=== PATIENT | male | born 1930 | race Caucasian/White ===

== ENCOUNTER 2017-04-06 03:15 | Inpatient (IN) | payer OTHER ==
[~2017-04-06] VITALS: Ht 182.9 cm; Wt 90.7 kg
[2017-04-06] VITALS (9 sets, daily range): BP systolic 35–82; BP diastolic 15–54
[2017-04-06 03:58] LABS: Basophils # (auto) 0 uL; Basophils % (auto) 0.3 % (0.0-2.0); Eosinophils # (auto) 0 uL; Eosinophils % (auto) 0.2 % (0.0-7.0); Mean Corpuscular Hgb Conc. 27.3 g/dL (32.0-36.0); Monocytes # (auto) 0.8 uL; Neutrophils # (auto) 8.8 uL
[2017-04-06 04:00] LABS: Hematocrit 47.6 % (41.0-53.0); Lymphocytes # (auto) 4.5 uL; Lymphocytes % (auto) 31.6 % (10.0-50.0); Mean Corpuscular Hemoglobin 28.3 pg (28.0-32.0); Mean Platelet Volume 9.2 fL (6.9-10.8); Monocytes % (auto) 5.8 % (0.0-12.0); Neutrophils % (auto) 62.1 % (37.0-80.0); Platelet Count (auto) 253 10^3/uL (140-450); Red Cell Distribution Width 15.6 % (11.8-14.3); White Blood Cell 14.1 10^3/uL (4.4-10.8)
[2017-04-06] MEDS ORDERED: MIDAZOLAM DRIP 50 mg/50mL 50 ML IV ONE (04:14)
[2017-04-06] MEDS ORDERED: ONDANSETRON HCL 4 MG/2 ML VIAL ONE (04:15)
[2017-04-06] MEDS ORDERED: MORPHINE SULFATE 4 MG/ML SYRG ONE (04:15)
[2017-04-06 04:17] LABS: Albumin 3.4 g/dL (3.4-5.0); BUN/Creatinine Ratio 10.2; Calcium 9.6 mg/dL (8.5-10.1); Magnesium 2.9 mg/dL (1.6-2.6)
[2017-04-06 04:18] LABS: Bilirubin, Total 0.8 mg/dL (0.2-1.0); Total Protein 6.9 g/dL (6.4-8.2)
[2017-04-06] MEDS: MIDAZOLAM DRIP 50 mg/50mL 50 ML IV SCH (04:22)
[2017-04-06] MEDS ORDERED: MORPHINE SULFATE 4 MG/ML SYRG IV ONE (04:30)
[2017-04-06] MEDS ORDERED: ONDANSETRON HCL 4 MG/2 ML VIAL IV ONE (04:30)
[2017-04-06 05:21] LABS: B-Type Natriuretic Peptide 428.2 pg/mL (0-100)
[2017-04-06] MEDS ORDERED: SODIUM CHLORIDE 0.9% 1,000 ML IV SCH ×3 (05:24→12:34)
[2017-04-06] MEDS ORDERED: InsuLIN R (HUMAN) 100 UNITS in SODIUM CHL 0.9% 99 ML IV SCH ×3 (05:24→19:31)
[2017-04-06] MEDS ORDERED: DEXTROSE (50%) 50ML SYRG IV PRN (05:30)
[2017-04-06] MEDS ORDERED: LEVOFLOXACIN 750MG 150 ML IV ONE (06:00)
[2017-04-06 06:09] LABS: Base Excess -22.4 mmol/L (-2.0-2.0); Blood 02Sat 98.9 % (96-100); Blood COHb 0.1 % (0.5-1.5); Blood MetHb 0.1 % (0.0-1.5); CPAP / PEEP 0; HCO3 6.7 mmol/L (22-26.0); HHb 1.1 % (0.0-5.0); MODE VENT - A/C; O2Hb 98.7 % (94.0-97.0); PCO2 25.1 mmHg (35.0-45.0); PCO2(T) 25.1 mmHg (35.0-45.0); PO2 276.9 mmHg (80.0-100.0); PO2(T) 276.9 mmHg (80.0-100.0); Sample Type Arterial; pH 7.045 (7.350-7.450)
[2017-04-06 06:12] LABS: Magnesium 2.7 mg/dL (1.6-2.6)
[2017-04-06] MEDS ORDERED: NOREPINEPHRINE 8 MG/250ML KIT 250 ML IV ONE (06:19)
[2017-04-06] MEDS: ACCU-CHEK COMFORT CURVE STRIP VI SCH ×10 (06:21→19:47)
[2017-04-06 06:28] LABS: Phosphorus 9.2 mg/dL (2.5-4.90)
[2017-04-06] MEDS ORDERED: NOREPINEPHRINE 8 MG/250ML KIT 250 ML IV SCH (06:34)
[2017-04-06] MEDS ORDERED: SODIUM BICARBONATE 8.4% INJ 50ML SYRINGE ONE ×2 (06:42→08:26)
[2017-04-06] MEDS ORDERED: MORPHINE SULF INJ 2 MG/ML SYRINGE 1ML IV PRN ×2 (06:45)
[2017-04-06] MEDS ORDERED: VANCOMYCIN PER PHARMACY 0 MG IV SCH (06:45)
[2017-04-06] MEDS ORDERED: ONDANSETRON HCL 4 MG/2 ML VIAL IV PRN (06:45)
[2017-04-06] MEDS ORDERED: NITROGLYCERIN 0.4 MG SL TAB SL PRN (06:45)
[2017-04-06] MEDS ORDERED: HEPARIN SODIUM (PORCINE) 5000 UNITS/ML 1ML VIAL IV ONE (07:15)
[2017-04-06] MEDS ORDERED: HEPARIN DRIP/D5W 100UNITS/ML 250 ML IV SCH (07:25)
[2017-04-06] MEDS ORDERED: SODIUM BICARBONATE 50ML VIAL 100 ML in SOD CHL 0.45% 1,000 ML IV SCH (07:30)
[2017-04-06] MEDS: SODIUM CHLORIDE 0.9% 1,000 ML IV SCH ×5 (07:30→20:46)
[2017-04-06] MEDS ORDERED: SODIUM BICARBONATE 8.4 % INJ 50ML VIAL IV ONE (07:45)
[2017-04-06 07:49] LABS: INR 1.71 (0.9-1.15); Partial Thromboplastin Time 31.3 sec (22.64-33.71); Prothrombin Time 18.7 sec (9.37-12.3)
[2017-04-06] MEDS: PIPERACILLIN-TAZOB 2.25GM 50 ML IV SCH ×3 (08:00→18:42)
[2017-04-06 08:07] LABS: BUN/Creatinine Ratio 11.5; Calcium 8.7 mg/dL (8.5-10.1); Magnesium 2.8 mg/dL (1.6-2.6); Potassium 4.8 mmol/L (3.5-5.1)
[2017-04-06 08:08] LABS: Basophils # (auto) 0.1 uL; Eosinophils # (auto) 0 uL; Eosinophils % (auto) 0.3 % (0.0-7.0); Hemoglobin 12.4 g/dL (13.5-17.5); Mean Platelet Volume 9.1 fL (6.9-10.8); Monocytes # (auto) 0.1 uL; White Blood Cell 14.9 10^3/uL (4.4-10.8)
[2017-04-06 08:09] LABS: Basophils % (auto) 0.9 % (0.0-2.0); Hematocrit 41.9 % (41.0-53.0); Lymphocytes # (auto) 2.6 uL; Lymphocytes % (auto) 17.6 % (10.0-50.0); Mean Corpuscular Hemoglobin 28.3 pg (28.0-32.0); Mean Corpuscular Hgb Conc. 29.7 g/dL (32.0-36.0); Mean Corpuscular Volume 95.2 fL (80.0-100.0); Monocytes % (auto) 0.9 % (0.0-12.0); Neutrophils % (auto) 80.3 % (37.0-80.0); Nucleated Red Blood Cells % 0.4 %; Platelet Count (auto) 225 10^3/uL (140-450); Red Cell Distribution Width 15.6 % (11.8-14.3)
[2017-04-06] MEDS ORDERED: VANCOMYCIN 1,250 MG in SODIUM CHL 0.9% 250 ML IV SCH (09:00)
[2017-04-06] MEDS ORDERED: DOBUTamine 1000MCG/ML 250 ML IV ONE (09:10)
[2017-04-06] MEDS: DOBUTamine 1000MCG/ML 250 ML IV SCH ×2 (09:17→18:27)
[2017-04-06 09:24] LABS: Phosphorus 9.8 mg/dL (2.5-4.90)
[2017-04-06] MEDS ORDERED: SODIUM BICARBONATE 50ML VIAL 150 ML in D5W 5% 1,000 ML IV SCH (10:00)
[2017-04-06] MEDS ORDERED: PHENYLEPHRINE INJ 20 MG in SODIUM CHL 0.9% 250 ML IV SCH (10:45)
[2017-04-06] MEDS: PHENYLEPHRINE INJ 20 MG in D5W 5% 250 ML IV SCH ×2 (11:40→19:49)
[2017-04-06 13:41] LABS: BUN/Creatinine Ratio 10.9; Calcium 7.9 mg/dL (8.5-10.1); Potassium 3.7 mmol/L (3.5-5.1)
[2017-04-06] MEDS ORDERED: ALBUMIN 25% 100 ML IV ONE (15:00)
[2017-04-06 18:28] LABS: Base Excess -13.7 mmol/L (-2.0-2.0); Blood 02Sat 99.2 % (96-100); Blood COHb 0.3 % (0.5-1.5); Blood MetHb 0.2 % (0.0-1.5); CPAP / PEEP 0; HCO3 10.4 mmol/L (22-26.0); HHb 0.8 % (0.0-5.0); MODE VENT - A/C; O2Hb 98.7 % (94.0-97.0); PO2 473.3 mmHg (80.0-100.0); PO2(T) 473.3 mmHg (80.0-100.0); Room 1018-ERT; Sample Type Arterial; pH 7.312 (7.350-7.450)
[2017-04-06 18:56] LABS: INR 2.9 (0.9-1.15); Prothrombin Time 31.9 sec (9.37-12.3)
[2017-04-06 19:00] LABS: BUN/Creatinine Ratio 8.7; Calcium 7.5 mg/dL (8.5-10.1); Potassium 3.8 mmol/L (3.5-5.1)
[2017-04-06 19:01] LABS: Partial Thromboplastin Time 76.2 sec (22.64-33.71)
[2017-04-06] MEDS ORDERED: SODIUM BICARBONATE 8.4% INJ 50ML SYRINGE IV ONE (21:21)
[2017-04-06] MEDS ORDERED: EPINEPHrine HCL 1 MG/10 ML SYRG IV ONE (21:21)
[2017-04-07] MEDS ORDERED: VANCOMYCIN 1,250 MG in D5W 5% 250 ML IV SCH (09:00)
== END 2017-04-06 21:22 | disposition expired | DRG 208 ==
LOC: ER 03:15 → EDBD 03:15 → TELE 03:16
PROVIDERS: ADMIT Nurse Practitioner; ATTEND Nurse Practitioner
PROC: 5A1935Z Respiratory Ventilation, Less than 24 Consecutive Hours (ICD-10-PCS; principal; 2017-04-06)
PROC: 0BH17EZ Insertion of Endotracheal Airway into Trachea, Via Natural or Artificial Opening (ICD-10-PCS; 2017-04-06)
PROC: 02HV33Z Insertion of Infusion Device into Superior Vena Cava, Percutaneous Approach (ICD-10-PCS; 2017-04-06)
PROC: 5A12012 Performance of Cardiac Output, Single, Manual (ICD-10-PCS; 2017-04-06)
DX: J96.02 Acute respiratory failure with hypercapnia (principal); I21.4 Non-ST elevation (NSTEMI) myocardial infarction; N17.0 Acute kidney failure with tubular necrosis; R57.0 Cardiogenic shock; E10.10 Type 1 diabetes mellitus with ketoacidosis without coma; G93.41 Metabolic encephalopathy; J96.01 Acute respiratory failure with hypoxia; E83.39 Other disorders of phosphorus metabolism; I11.0 Hypertensive heart disease with heart failure; I25.10 Atherosclerotic heart disease of native coronary artery without angina pectoris; I50.9 Heart failure, unspecified; I70.0 Atherosclerosis of aorta; Z95.5 Presence of coronary angioplasty implant and graft; Z91.14 Patient's other noncompliance with medication regimen; I48.91 Unspecified atrial fibrillation; Z88.2 Allergy status to sulfonamides
CPT/HCPCS: 31500; 36415; 36600; 51702; 70450; 71010; 80048; 80053; 82010; 82805; 82962; 83735; 83880; 83930; 84100; 84484; 85025; 85379; 85610; 85730; 87040; 87070; 87205; 92950; 93306; 94002; 96365; 96367; 96375; 99291; J1815; J1956; J2250; J2405; J2543; J7060